=== PATIENT | female | born 1995 | race Two or more races ===

== ENCOUNTER 2021-12-22 18:02 | Emergency (ER) | payer OTHER ==
[~2021-12-22] VITALS: Ht 157.5 cm; Wt 59.0 kg
[2021-12-22] MEDS ORDERED: fentaNYL PF VIAL 100 MCG/2 ML VIAL IVP ONE (19:00)
[2021-12-22] MEDS ORDERED: IV NORMAL SALINE 1000ML BAG 1,000 ML IV ONE (19:00)
[2021-12-22] MEDS ORDERED: ONDANSETRON PF 4 MG/2 ML VIAL. IVP ONE (19:00)
[2021-12-22 19:05] LABS: BACTERIA,URINE FEW /HPF (0-FEW); RBC,URINE 0 /HPF (0-2); WBC,URINE 0 /HPF (0-4)
[2021-12-22 19:06] LABS: AMORPHOUS SEDIMENT,UR PRESENT /HPF
[2021-12-22 19:36] LABS: BASO # 0.1 x10^3/uL (0.0-0.2); BASO % 1 % (0-3); EOS # 0.3 x10^3/uL (0.0-0.7); EOS % 2 % (0-3); HEMATOCRIT 39.4 % (36.0-47.0); HEMOGLOBIN 13.3 g/dL (12.0-15.5); LYMPH # 2.3 x10^3/uL (1.0-4.8); LYMPH % 16 % (24-48); MEAN CORPUSCULAR HEMOGLOBIN 32 pg (25-35); MEAN CORPUSCULAR HGB CONC 34 g/dL (31-37); MEAN CORPUSCULAR VOLUME 94 fL (79-100); MONO # 0.6 x10^3/uL (0.0-1.1); MONO % 5 % (0-9); NEUT # 10.8 x10^3/uL (1.8-7.7); NEUT % 76 % (31-73); PLATELET COUNT 293 x10^3/uL (140-400); RED CELL DISTRIBUTION WIDTH 14.6 % (11.5-14.5); WHITE BLOOD COUNT 14.3 x10^3/uL (4.0-11.0)
[2021-12-22 19:48] LABS: CALCIUM 9.2 mg/dL (8.5-10.1); CREATININE 0.9 mg/dL (0.6-1.0); GFR 76.3; POTASSIUM 3.5 mmol/L (3.5-5.1)
[2021-12-22 19:53] LABS: ALBUMIN 3.6 g/dL (3.4-5.0); TOTAL BILIRUBIN 0.4 mg/dL (0.2-1.0); TOTAL PROTEIN 7.1 g/dL (6.4-8.2)
[2021-12-22] MEDS ORDERED: IOHEXOL 300 MG/ML 100ML VIAL. IV ONE (20:00)
[2021-12-22] MEDS ORDERED: CONTRAST GIVEN. MC PRN (20:00)
--- NOTE | 2021-12-22 20:40 | RAD ---
Exam: CT of abdomen and pelvis with contrast INDICATION: Lower abdominal pain for 2 days TECHNIQUE: Sequential axial images through the abdomen and pelvis obtained following the administrati on of 75 mL of Isovue-370 IV contrast. Sagittal and coronal reformatted images were reconstructed fro m the axial data and reviewed. Exposure: One or more of the following in the visualized dose reduction techniques were utilized for this examination: 1. Automated exposure control 2. Adjustment of the MA and/or KV according to patient size 3. Use of iterative of reconstructive technique Comparisons: None FINDINGS: Heart size is normal. No pericardial effusion. Visualized lung bases are clear. No pleural effusion. Liver, spleen, pancreas, gallbladder and adrenals are unremarkable. No perinephric inflammation or hydronephrosis. No renal or ureteral calculi are identified. Bladder is decompressed not well evaluated. Uterus is not enlarged. No abnormal adnexal mass. Moderate amount of stool is noted in the colon. Appendix is normal. No free intra-abdominal air or fl uid. No obstruction. Abdominal aorta has normal course and caliber. Abdominal vasculature is patent. No enlarged intra-abdominal lymph nodes are identified. No suspicious osseous lesions or acute fractures. IMPRESSION: Cystic lesion at the left adnexa which measures approximately 2.6 cm, favored represent cyst within t he left ovary however incompletely characterized on CT. Electronically signed by: Maegan Evans MD (12/22/2021 8:38 PM) [facility]
--- NOTE | 2021-12-22 21:47 | PHYS DOC ---
Past Medical History Past Surgical History: No Surgical History Smoking Status: Current Every Day Smoker Alcohol Use: Rarely General Adult EDM: Chief Complaint: ABDOMINAL PAIN HPI: HPI: Patient is a 26 year old female with no significant medical history presented to the ED today complaining of 4 out of 10 bilateral lower abdominal pain, sy mptoms have been going on intermittently since yesterday. Patient describes the pain as cramping, denies anything specifically exacerbating or relieving the pain. She states she was seen at [facility] yesterday and they only did her lab work, she states they did not obtain any images. Denies anything specifically exacerbating or relieving her pain. Denies any concerns for STDs, denies any unusual vaginal discharge. Review of Systems: Review of Systems: Constitutional: Denies fever or chills. [] Eyes: Denies change in visual acuity. [] HENT: Denies nasal congestion or sore throat. [] Respiratory: Denies cough or shortness of breath. [] Cardiovascular: Denies chest pain or edema. [] GI: Reports abdominal pain, denies nausea, vomiting, bloody stools or diarrhea. [] : Denies dysuria. [] Musculoskeletal: Denies back pain or joint pain. [] Integument: Denies rash. [] Neurologic: Denies headache, focal weakness or sensory changes. [] Psychiatric: Denies depression or anxiety. [] Heart Score: C/O Chest Pain: N/A Risk Factors: Risk Factors: DM, Current or recent (<one month) smoker, HTN, HLP, family history of CAD, obesity. Risk Scores: Score 0 - 3: 2.5% MACE over next 6 weeks - Discharge Home Score 4 - 6: 20.3% MACE over next 6 weeks - Admit for Clinical Observation Score 7 - 10: 72.7% MACE over next 6 weeks - Early Invasive Strategies Current Medications: Current Medications Medications (Trade) Dose Ordered Sig/Susan Start Time Stop Time Status Last Admin Dose Admin Fentanyl Citrate (Fentanyl 2ml Vial) 50 mcg 1X ONCE 12/22/21 19:00 12/22/21 19:01 DC 12/22/21 19:32 50 MCG Info (CONTRAST GIVEN -- Rx MONITORING) 1 each PRN DAILY PRN 12/22/21 20:00 12/24/21 19:59 Iohexol (Omnipaque 300 Mg/ml) 75 ml 1X ONCE 12/22/21 20:00 12/22/21 20:01 DC 12/22/21 20:11 75 ML Ondansetron HCl (Zofran) 4 mg 1X ONCE 12/22/21 19:00 12/22/21 19:01 DC 12/22/21 19:32 4 MG Sodium Chloride 1,000 ml @ 1,000 mls/hr 1X ONCE 12/22/21 19:00 12/22/21 19:59 DC 12/22/21 19:32 1,000 MLS/HR Allergies: Allergies: Allergies Coded Allergies Type Severity Reaction Last Updated Verified cephalexin Allergy Mild Hives 12/22/21 Yes Physical Exam: PE: Constitutional: Well developed, well nourished, no acute distress, non-toxic appearance. [] HENT: Normocephalic, atraumatic, bilateral external ears normal, oropharynx moist, no oral exudates, nose normal. [] Eyes: PERRLA, EOMI, conjunctiva normal, no discharge. [] Neck: Normal range of motion, no tenderness, supple, no stridor. [] Cardiovascular:Heart rate regular rhythm, no murmur [] Lungs & Thorax: Bilateral breath sounds clear to auscultation [] Abdomen: Bowel sounds normal, soft, no tenderness, no masses, no pulsatile masses. [] Skin: Warm, dry, no erythema, no rash. [] Back: No tenderness, no CVA tenderness. [] Extremities: No tenderness, no cyanosis, no clubbing, ROM intact, no edema. [] Neurologic: Alert and oriented X 3, normal motor function, normal sensory function, no focal deficits noted. [] Psychologic: Affect normal, judgement normal, mood normal. [] Current Patient Data: Labs: Laboratory Tests Test 12/22/21 18:42 12/22/21 18:52 12/22/21 19:25 Urine Collection Type Unknown Urine Color (Auto) Yellow Urine Turbidity Hazy Urine pH (Auto) 7.5 (<5.0-8.0) Urine Specific [place] 1.022 (1.000-1.030) Urine Protein (Auto) Negative mg/dL (Negative) Urine Glucose (Auto)(UA) Negative mg/dL (Negative) Urine Ketones (Auto) Negative mg/dL (Negative) Urine Blood (Auto) Negative (Negative) Urine Nitrite Negative (Negative) Urine Bilirubin (Auto) Negative (Negative) Urine Urobilinogen (Auto) Normal mg/dL (Normal) Urine Leukocyte Esterase (Auto) Negative (Negative) Urine RBC 0 /HPF (0-2) Urine WBC 0 /HPF (0-4) Urine Squamous Epithelial Cells Few /LPF Urine Amorphous Sediment Present /HPF Urine Bacteria Few /HPF (0-FEW) Urine Mucus Slight /LPF POC Urine HCG, Qualitative Hcg negative (Negative) White Blood Count 14.3 x10^3/uL (4.0-11.0) H Red Blood Count 4.20 x10^6/uL (3.50-5.40) Hemoglobin 13.3 g/dL (12.0-15.5) Hematocrit 39.4 % (36.0-47.0) Mean Corpuscular Volume 94 fL (79-100) Mean Corpuscular Hemoglobin 32 pg (25-35) Mean Corpuscular Hemoglobin Concent 34 g/dL (31-37) Red Cell Distribution Width 14.6 % (11.5-14.5) H Platelet Count 293 x10^3/uL (140-400) Neutrophils (%) (Auto) 76 % (31-73) H Lymphocytes (%) (Auto) 16 % (24-48) L Monocytes (%) (Auto) 5 % (0-9) Eosinophils (%) (Auto) 2 % (0-3) Basophils (%) (Auto) 1 % (0-3) Neutrophils # (Auto) 10.8 x10^3/uL (1.8-7.7) H Lymphocytes # (Auto) 2.3 x10^3/uL (1.0-4.8) Monocytes # (Auto) 0.6 x10^3/uL (0.0-1.1) Eosinophils # (Auto) 0.3 x10^3/uL (0.0-0.7) Basophils # (Auto) 0.1 x10^3/uL (0.0-0.2) Sodium Level 140 mmol/L (136-145) Potassium Level 3.5 mmol/L (3.5-5.1) Chloride Level 104 mmol/L (98-107) Carbon Dioxide Level 28 mmol/L (21-32) Anion Gap 8 (6-14) Blood Urea Nitrogen 12 mg/dL (7-20) Creatinine 0.9 mg/dL (0.6-1.0) Estimated GFR (Cockcroft-Gault) 76.3 BUN/Creatinine Ratio 13 (6-20) Glucose Level 88 mg/dL (70-99) Calcium Level 9.2 mg/dL (8.5-10.1) Total Bilirubin 0.4 mg/dL (0.2-1.0) Aspartate Amino Transferase (AST) 17 U/L (15-37) Alanine Aminotransferase (ALT) 15 U/L (14-59) Alkaline Phosphatase 72 U/L (46-116) Total Protein 7.1 g/dL (6.4-8.2) Albumin 3.6 g/dL (3.4-5.0) Albumin/Globulin Ratio 1.0 (1.0-1.7) Lipase 165 U/L (73-393) Laboratory Tests 12/22/21 19:25 Laboratory Tests 12/22/21 19:25 Vital Signs: Vital Signs Date Time Temp Pulse Resp B/P (MAP) Pulse Ox O2 Delivery O2 Flow Rate FiO2 12/22/21 19:32 16 100 Room Air 12/22/21 18:37 98.1 87 124/58 (80) 98.1 EKG: EKG: [] Radiology/Procedures: Radiology/Procedures: []PROCEDURE: CT ABD PELV W/ IV CONTRST ONLY Exam: CT of abdomen and pelvis with contrast INDICATION: Lower abdominal pain for 2 days TECHNIQUE: Sequential axial images through the abdomen and pelvis obtained following the administration of 75 mL of Isovue-370 IV contrast. Sagittal and coronal reformatted images were reconstructed from the axial data and reviewed. Exposure: One or more of the following in the visualized dose reduction techniques were utilized for this examination: 1. Automated exposure control 2. Adjustment of the MA and/or KV according to patient size 3. Use of iterative of reconstructive technique Comparisons: None FINDINGS: Heart size is normal. No pericardial effusion. Visualized lung bases are clear. No pleural effusion. Liver, spleen, pancreas, gallbladder and adrenals are unremarkable. No perinephric inflammation or hydronephrosis. No renal or ureteral calculi are identified. Bladder is decompressed not well evaluated. Uterus is not enlarged. No abnormal adnexal mass. Moderate amount of stool is noted in the colon. Appendix is normal. No free intra-abdominal air or fluid. No obstruction. Abdominal aorta has normal course and caliber. Abdominal vasculature is patent. No enlarged intra-abdominal lymph nodes are identified. No suspicious osseous lesions or acute fractures. IMPRESSION: Cystic lesion at the left adnexa which measures approximately 2.6 cm, favored represent cyst within the left ovary however incompletely characterized on CT. Electronically signed by: Maegan Harkins MD (12/22/2021 8:38 PM) [facility] DICTATED and SIGNED BY: MAEGAN HARKINS MD DATE: 12/22/212032 PROCEDURE: TRANSVAGINAL EXAM: ULTRASOUND PELVIS INDICATION: Pelvic pain. Ovarian cyst. COMPARISON: Same day CT TECHNIQUE: Transabdominal and transvaginal sonography was performed. FINDINGS: The uterus measures 8.1 x 4 x 3.4 cm. The right ovary measures 3.2 x 2.0 x 1.9 cm and the left ovary 3.3 x 2.7 x 2.5 cm. Endometrial thickness measured at 0.7 cm. Unremarkable endometrium and uterine parenchyma. No fluid along the endometrial canal. Doppler flow is maintained to both ovaries. Several follicles. Left ovarian cyst measuring 2.3 x 1.5 x 1.9 cm with low-level internal echoes and peripheral vascular flow. The margins of the cyst are mildly crenulated. No complex cyst or mass at the right adnexa. Small volume free pelvic fluid which appear simple. IMPRESSION: 1. Left ovarian cyst measuring up to 2.3 cm with an appearance suggestive of an involuting corpus luteum. Only a small amount of free pelvic fluid which appears simple. The findings are within the broad range of normal for patient age. Dedicated ultrasound follow-up is only needed if there is persistent unexplained pelvic pain. 2. Unremarkable uterus, endometrium and right ovary. Electronically signed by: SORAIDA ALLEN MD (12/22/2021 11:26 PM) [facility] DICTATED and SIGNED BY: SORAIDA ALLEN MD DATE: 12/22/212322 Course & Med Decision Making: Course & Med Decision Making Pertinent Labs and Imaging studies reviewed. (See chart for details) This is a 26-year-old female patient presenting to the ED today complaining of bilateral lower abdominal pain symptoms for 3 days. Was seen at [facility] but she feels they did not do much for her Negative urine hCG, UA negative for infection, CBC with a WBC OF 14.3, CMP with no acute findings, lipase is normal. CT of the abdomen and pelvis noted for cystic lesion at the left adnexa which measures approximately 2.6 cm, favored represent cyst within the left ovary however incompletely characterized on CT. Pelvic ultrasound noted for left ovarian cyst measuring up to 2.3 cm with an appearance suggestive of an involuting corpus luteum. Only a small amount of free pelvic fluid which appears simple. The findings are within the broad range of normal for patient age. Dedicated ultrasound follow-up is only needed if there is persistent unexplained pelvic pain.Unremarkable uterus, endometrium and right ovary. Patient instructed to follow-up with her own [facility] or the provided [facility]. Pro vided return precautions. Discharged in stable condition Bi Disclaimer: Bi Disclaimer: This electronic medical record was generated, in whole or in part, using a voice recognition dictation system. Departure Departure Impression: Primary Impression: Ovarian cyst, left Disposition: HOME / SELF CARE / HOMELESS Condition: STABLE Referrals: UNKNOWN PCP NAME (PCP) PACO PHOENIX MD Please follow-up with your [facility] or the provided [facility] in the next 7 days Patient Instructions: Ovarian Cyst Additional Instructions: You were evaluated in the emergency room for abdominal pain. Your pelvic ultrasound as well as CT of the abdomen and pelvis were noted for a cyst in your left ovary. Please follow-up with your [facility] or the provided [facility] in the next 7 days. Come back to the ED at any point symptoms worsen. You can take Tylenol or Motrin as needed for pain. MARY OCONNOR SINTER FEEDER Dec 22, 2021 21:47
--- NOTE | 2021-12-22 23:29 | RAD ---
EXAM: ULTRASOUND PELVIS INDICATION: Pelvic pain. Ovarian cyst. COMPARISON: Same day CT TECHNIQUE: Transabdominal and transvaginal sonography was performed. FINDINGS: The uterus measures 8.1 x 4 x 3.4 cm. The right ovary measures 3.2 x 2.0 x 1.9 cm and the left ovary 3.3 x 2.7 x 2.5 cm. Endometrial thickness measured at 0.7 cm. Unremarkable endometrium and uterine parenchyma. No fluid along the endometrial canal. Doppler flow is maintained to both ovaries. Several follicles. Left ovarian cyst measuring 2.3 x 1.5 x 1.9 cm with low-level internal echoes and peripheral vascular flow. The margins of the cyst are mil dly crenulated. No complex cyst or mass at the right adnexa. Small volume free pelvic fluid which appear simple. IMPRESSION: 1. Left ovarian cyst measuring up to 2.3 cm with an appearance suggestive of an involuting corpus lut eum. Only a small amount of free pelvic fluid which appears simple. The findings are within the broad range of normal for patient age. Dedicated ultrasound follow-up is only needed if there is persisten t unexplained pelvic pain. 2. Unremarkable uterus, endometrium and right ovary. Electronically signed by: SORAIDA ALLEN MD (12/22/2021 11:26 PM) [facility]
[2021-12-22 23:36] VITALS: BP 114/69
== END 2021-12-23 00:06 | disposition home or self-care (01) ==
LOC: ER 18:02
DX: N83.202 Unspecified ovarian cyst, left side (principal); F17.200 Nicotine dependence, unspecified, uncomplicated; Z88.1 Allergy status to other antibiotic agents
CPT/HCPCS: 36415; 74177; 76830; 80053; 81001; 81025; 83690; 85025; 96361; 96374; 96375; 99285; J2405; J3010; J7030; Q9967